=== PATIENT | male | born 1980 | race Two or more races ===

== ENCOUNTER 2020-02-03 09:58 | Emergency (ER) | payer SELFPAY ==
[~2020-02-03] VITALS: Ht 170.2 cm; Wt 77.1 kg
[2020-02-03 10:17] VITALS: BP 147/95
== END 2020-02-03 13:38 | disposition home or self-care (01) ==
LOC: ER 09:58 → EDBD 09:58 → ER 13:38
DX: M25.562 Pain in left knee (principal); M25.462 Effusion, left knee
CPT/HCPCS: 73562